=== PATIENT | male | born 1940 | race African-American/Black ===

== ENCOUNTER 2018-09-23 07:12 | Day surgery (SDC) | payer OTHER ==
[2018-09-08 16:35] VITALS: BMI 19.0
[2018-09-23] MEDS ORDERED: LIDOCAINE HCL 1%, 10 MG/ML (20ML VIAL) ONE (07:16)
[2018-09-23] MEDS ORDERED: BACITRACIN 15 GM TUBE TOPICAL OINTMENT ONE (08:10)
[2018-09-23] MEDS ORDERED: LIDOCAINE HCL/PF 2% SDV 5ML VIAL ONE (08:19)
[2018-09-23] MEDS ORDERED: ceFAZolin SODIUM 1 GM VIAL ONE (08:19)
[2018-09-23] MEDS ORDERED: PROPOFOL 20 ML ONE (08:21)
[2018-09-23] MEDS ORDERED: ceFAZolin SODIUM 1 GM VIAL IVPB ONE (08:22)
[2018-09-23] MEDS ORDERED: DEXAMETHASONE SOD PHOSPHATE 4 MG/1 ML VIAL ONE (08:37)
[2018-09-23] MEDS ORDERED: BUPIVACAINE HCL/PF 0.5% (5MG/ML) 10 ML VIAL ONE (08:45)
[2018-09-23] MEDS ORDERED: ONDANSETRON 4 MG/2 ML VIAL IVPUSH PRN (08:57)
[2018-09-23] MEDS ORDERED: oxyCODONE HCL 5 MG TABLET PO PRN ×2 (08:57→09:16)
[2018-09-23] MEDS ORDERED: LACTATED RINGERS SOLUTION 1,000 ML IV SCH (09:00)
[2018-09-23] MEDS ORDERED: BUPIVACAINE HCL/PF (5 MG/ML) 30 ML VIAL IJ ONE (09:02)
--- NOTE | 2018-09-23 09:18 | OP ---
Operative Note - Note: Operative Date: 09/23/18 Pre-Operative Diagnosis: phimosis, chronic rt epididymorchitis Operation: circ, rt orchiectomy Findings: as above, plus rt hydrocele Post-Operative Diagnosis: Same as Pre-op Surgeon: Hiren Barrios Anesthesia: General Specimens Removed: foreskin, rt testis Estimated Blood Loss (mls): 5 Operative Report Dictated: Yes
[2018-09-23] MEDS ORDERED: DEXTROSE 5%-0.45% SALINE 1,000 ML IV SCH (09:30)
--- NOTE | 2018-09-23 10:48 | OP ---
DATE OF OPERATION: 09/23/2018 PREOPERATIVE DIAGNOSIS: Phimosis and chronic right epididymo-orchitis. POSTOPERATIVE DIAGNOSIS: Phimosis and chronic right epididymo-orchitis. PROCEDURE: Circumcision and right orchiectomy. . SURGEON: Agustin Licona MD INDICATIONS: Patient is a 78-year-old male with phimosis and chronic right epididymo-orchitis despite multiple antibiotic courses. He elected to undergo right orchiectomy and circumcision. The risks, benefits, and alternatives were discussed. DESCRIPTION OF PROCEDURE: Patient was taken to the OR and placed supine on the operating table. After cardiac monitoring was administered, general anesthesia was established. He was prepped and draped in dorsal lithotomy position. The scrotum and penis were prepped and draped in standard surgical fashion. He was placed in dorsal lithotomy position. Attention was first turned to perform the orchiectomy. A right hemiscrotal incision was created approximately 3 cm in length with a No. 15 blade. Using cautery, the tunica vaginalis was identified and then delivered out of the scrotal sac. The right testicle diminished with hydrocele was from surrounding attachments to the scrotal wall until the only attachment left was the spermatic cord. This was suture ligated with 2-0 Vicryl and tied again with a 2-0 Vicryl tie, and then, the spermatic cord was transected and the specimen of spermatic cord, right testicle, right epididymis, and right hydrocele was sent to Pathology for analysis. There was no bleeding from the amputated stump of the cord. Attention turned to wound closure. The dartos layer was reapproximated with 3-0 chromic sutures, and the skin reapproximated with 3-0 chromic sutures, as well. At this point now with the orchiectomy completed on the right, attention was turned to performing the circumcision. The foreskin was incised in its normal anatomic position at the level of the coronal sulcus, and then, foreskin retracted, and a second circumferential incision was created just behind the coronal sulcus. This sleeve of tissue was then excised using cautery. All bleeding points were cauterized, and then, the proximal foreskin was sewn to the distal skirt of foreskin circumferentially with 3-0 chromic sutures until it was completely re-anastomosed. Dry sterile dressing with was then placed. Patient was then awoken from anesthesia and transferred to the recovery room in stable condition. There were no complications. Estimated blood loss was minimal. AGUSTIN LICONA M.D. [id number]
[2018-09-23 13:25] VITALS: BP 136/65; PULSE 80; TEMP 97.9
--- NOTE | 2018-09-26 12:57 | PATH ---
Surgical Pathology Report Patient Name: VANDA HEATH [facility]. Rec. #: [id number] /Age/Gender: 1940 (Age: 78) / M Account: [id number] Location: [facility] SURGICAL Taken: 09/23/2018 Received: 09/23/2018 Reported: 09/26/2018 Physicians: Hiren Barrios M.D. Specimen(s) Received A: FORESKIN B: RIGHT TESTICLE Clinical History Phimosis, orchitis, right hydrocele Final Diagnosis A. FORESKIN, EXCISION: SEGMENT OF FORESKIN WITH MODERATE TO SEVERE CHRONIC INFLAMMATION. B. RIGHT TESTICLE, ORCHIECTOMY: TESTICLE WITH HYDROCELE AND ASSOCIATED MARKED CHRONIC INFLAMMATORY INFILTRATE, FIBROSIS, OLD HEMORRHAGE (HEMOSIDERIN-LADEN MACROPHAGES), INVOLVING EPIDIDYMIS. TESTICULAR TISSUE SHOWING INTERSTITIAL CHRONIC INFLAMMATORY INFILTRATE AND FOCAL ATROPHYIC CHANGE. Electronically Signed Moshe Estrella M.D. Gross Description A. Received in formalin labeled "foreskin," is a 5.3 x 2.0 x 1.3 cm paris brown, wrinkled portion of skin, consistent with foreskin. No discrete epidermal lesions are identified. Slurry Plant Operator sections are submitted in one cassette. B. Received in formalin labeled "right testicle," is an 83 g orchiectomy specimen including a 3.0 x 2.5 x 1.7 cm atrophic appearing testicle, a 2.0 x 1.0 x 0.5 cm epididymis and a 1.5 cm in length portion of spermatic cord. There is a 6.5 x 3.5 x 3.5 cm hydrocele attached to the outer surface of the testis. The hydrocele contains yellow serous fluid. The inner lining of the hydrocele displays a 0.5 cm in greatest dimension nodular growth. The testicular parenchyma is paris and grossly unremarkable. Slurry Plant Operator sections are submitted in 7 cassettes as follows: 1-spermatic cord margin of resection; 2-testicular parenchyma with epididymis; 3-additional testicular parenchyma with epididymis and attached hydrocele wall; 4-additional testicular parenchyma with hydrocele wall and tunica; 5-nodular growth on hydrocele wall; 6-additional hydrocele wall; 7-additional spermatic cord. DL/09/23/2018 saudi/09/23/2018
== END 2018-09-23 12:15 | disposition home or self-care (01) ==
LOC: JASU-SURG 07:12
PROVIDERS: ATTEND Urology
PROC: 0VTTXZZ Resection of Prepuce, External Approach (ICD-10-PCS; principal; 2018-09-23 08:00)
PROC: 0VT90ZZ Resection of Right Testis, Open Approach (ICD-10-PCS; 2018-09-23 08:00)
DX: N47.1 Phimosis (principal); N45.3 Epididymo-orchitis
CPT/HCPCS: 88304-TC; 88305-TC; 94760